=== PATIENT | male | born 1980 | race American Indian/Alaskan Native ===

== ENCOUNTER 2021-03-14 07:52 | Emergency (ER) | payer OTHER ==
--- NOTE | 2021-03-14 08:38 | Emergency Department Report ---
ED Extremity Problem HPI - General Chief complaint: Extremity Injury, Lower Stated complaint: SHARP PAIN IN FEET Time Seen by Provider: 03/14/21 08:11 Source: patient Mode of arrival: Ambulatory Limitations: No Limitations - History of Present Illness Initial comments: 40-year-old -[place] male presents to the ER today with complaints of pain to the medial aspect of his left foot. Patient states that he noticed the symptoms about a month ago. He reports associated swelling to the area. 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 He did report that he injured his "ligaments" in his foot when he was a teenager but he did not require any surgery. He also admits that he has not been wearing the proper shoes at work. He states that the pain is worse with ambulation and movement of his feet. He has been applying ice and doing some stretching exercises without much relief. He has not been taking anything [id number]. He reports no erythema, bruising, numbness, tingling or any additional symptoms at this time. He denies any history of diabetes or any known history of gout. MD Complaint: other (left foot pain ) -: month(s) (1) - Related Data Previous Rx's Medication Instructions Recorded Last Taken Type Ketorolac [Toradol] 10 mg PO Q6H PRN #20 03/14/21 Unknown Rx methylPREDNISolone [Medrol 4MG 4 mg PO DAILY #1 pack 03/14/21 Unknown Rx DOSEPAK (21 tabs)] Allergies Allergy/AdvReac Type Severity Reaction Status Date / Time No Known Allergies Allergy Unverified 03/14/21 07:59 ED Review of Systems ROS: Stated complaint: SHARP PAIN IN FEET Other details as noted in HPI Comment: All other systems reviewed and negative Musculoskeletal: joint swelling, arthralgia ED Past Medical Hx - Past Medical History Previous Medical History?: No - Surgical History Additional Surgical History: LEFT KNEE - Medications Home Medications: Home Medications Medication Instructions Recorded Confirmed Last Taken Type Ketorolac [Toradol] 10 mg PO Q6H PRN #20 03/14/21 Unknown Rx methylPREDNISolone [Medrol 4MG 4 mg PO DAILY #1 pack 03/14/21 Unknown Rx DOSEPAK (21 tabs)] ED Physical Exam - General Limitations: No Limitations General appearance: alert, in no apparent distress - Respiratory Respiratory exam: Present: normal lung sounds bilaterally. Absent: respiratory distress - Cardiovascular Cardiovascular Exam: Present: regular rate, normal rhythm, normal heart sounds - Expanded Lower Extremity Exam Left Foot/Toe exam: Present: full ROM, tenderness (mild ttp medial aspect of right foot), swelling (very mild medial aspect left foot ). Absent: abrasion, laceration, ecchymosis, deformity, crepidus, dislocation, erythema, amputation, puncture wound, foreign body, tenderness at base of 5th metatarsal, nail avulsion, subungual hematoma Neuro vascular tendon exam: Present: no vascular compromise. Absent: pulse deficit, abnormal cap refill, motor deficit, sensory deficit, tendon deficit Gait: Positive: observed and normal - Neurological Exam Neurological exam: Present: alert, oriented X3, CN II-XII intact, normal gait - Psychiatric Psychiatric exam: Present: normal affect, normal mood - Skin Skin exam: Present: intact ED Course Vital Signs 03/14/21 08:02 Temperature 98.6 F Pulse Rate 87 Respiratory 20 Rate Blood Pressure 135/83 O2 Sat by Pulse 99 Oximetry Critical care attestation.: If time is entered above; I have spent that time in minutes in the direct care of this critically ill patient, excluding procedure time. ED Disposition Clinical Impression: Foot pain Disposition: HOME / SELF CARE / HOMELESS Is pt being admited?: No Does the pt Need Aspirin: No Condition: Stable Instructions: Foot Pain Additional Instructions: I recommend that you start wearing proper shoes for work. He can also continue to apply the foot brace especially while you are at work. Elevate your leg as often as possible. Take the Medrol Dosepak and the Toradol as prescribed to help with pain. You will be given referral information to contract administration specialist for further evaluation especially if your symptoms persist. Return to the ER if your symptoms worsens in any way. Prescriptions: methylPREDNISolone [Medrol 4MG DOSEPAK (21 tabs)] 4 mg PO DAILY #1 pack Ketorolac [Toradol] 10 mg PO Q6H PRN #20 PRN Reason: Pain Referrals: CARMELITA STRONG MD [Staff Physician] - 3-5 Days Forms: Work/School Release Form(ED) Time of Disposition: 08:52
[2021-03-14] MEDS ORDERED: KETOROLAC 60 MG/2 ML INJ IM ONE (08:47)
[2021-03-14 09:45] VITALS: BP 147/81
== END 2021-03-14 09:46 | disposition home or self-care (01) ==
LOC: ED 07:52
DX: M79.672 Pain in left foot (principal); Z79.899 Other long term (current) drug therapy; Z98.890 Other specified postprocedural states
CPT/HCPCS: 96372; 99282; J1885